=== PATIENT | male | born 1955 | race Caucasian/White ===

== ENCOUNTER 2017-12-01 06:54 | Emergency (ER) | payer BC ==
[~2017-12-01] VITALS: Ht 177.8 cm; Wt 181.8 kg
[2017-12-01 07:02] VITALS: BP 127/60; TEMP 98
[2017-12-01 08:28] LABS: BASO # 0.1 (0.0-0.2); BASO % 1.1 % (0.0-2.0); EOS # 0.5 (0.0-0.7); EOS % 6.8 % (0-4.0); GRAN # 3.8 (1.4-6.5); GRAN % 52.3 % (42.2-75.2); HEMOGLOBIN 11.8 g/dl (13.5-18.0); LYMPH # 1.7 (1.2-3.4); LYMPH % 23.5 % (20.0-51.0); MEAN CELL VOLUME 89 fl (80.0-100.0); MEAN CORPUSCULAR HEMOGLOBIN 29 pg (27.0-31.0); MEAN CORPUSCULAR HGB CONC 32 g/dl (33.0-37.0); MONO # 1.1 (0.1-0.6); MONO % 15.5 % (1.7-9.3); PLATELET COUNT 374 K/mm3 (130-400); RED BLOOD COUNT 4.13 M/mm3 (4.20-5.60); REDCELL DISTRIBUTION WIDTH-CV 15.9 % (11.5-14.5)
[2017-12-01 08:29] LABS: INR 1.2 (0.8-3.0); PROTHROMBIN TIME 13.5 SECONDS (9.7-12.8)
[2017-12-01 08:30] LABS: HEMATOCRIT 36.8 % (42.0-52.0)
[2017-12-01 08:32] LABS: PARTIAL THROMBOPLASTIN TIME 36.6 SECONDS (26.0-37.0)
[2017-12-01 08:37] LABS: ALANINE AMINOTRANSFERASE 31 U/L (21-72); ALBUMIN 3.6 gm/dL (3.5-5.0); ALKALINE PHOSPHATASE 70 U/L (50-136); ANION GAP 7 mmol/L (7-16); AST,SGOT 24 U/L (15-37); BILIRUBIN,TOTAL 0.4 mg/dL (0.0-1.0); BLOOD UREA NITROGEN 16 mg/dL (9-20); CALCIUM 8.8 mg/dL (8.4-10.2); CARBON DIOXIDE 29 mmol/L (22-30); CHLORIDE 100 mmol/L (98-107); CREATININE, serum 0.58 mg/dL (0.66-1.25); GLUCOSE 342 mg/dL (74-106); LIPASE 495 U/L (23-300); POTASSIUM 4.4 mmol/L (3.4-5.0); SODIUM 135 mmol/L (137-145); TOTAL PROTEIN 6.8 gm/dL (6.4-8.2)
[2017-12-01 08:40] LABS: ACETONE,SERUM NEGATIVE
[2017-12-01 08:51] LABS: TROPONIN-I < 0.012 ng/mL (0.000-0.034)
[2017-12-01 08:52] LABS: ARTERIAL BLD GAS O2 SATURATION 94.9 % (92-100); ARTERIAL BLD GAS TCO2 CT 24.8; ARTERIAL BLOOD GAS HCO3 23.8 meq/L (22-26); ARTERIAL BLOOD GAS PCO2 32.1 mmHg (35-45); ARTERIAL BLOOD GAS PO2 73.2 mmHg (80-100); ARTERIAL BLOOD GAS pH 7.49 (7.35-7.45)
[2017-12-01] MEDS ORDERED: PRILOSEC 20MG20 MG PO (10:02)
[2017-12-01] MEDS ORDERED: NORCO 325 MG-51 TAB PO (10:02)
[2017-12-01] MEDS ORDERED: LASIX 20MG TABL20 MG PO (10:03)
[2017-12-01] MEDS ORDERED: K-DUR 10 MEQ T10 MEQ PO (10:03)
[2017-12-01] MEDS ORDERED: ELIQUIS 5MG PO (10:04)
[2017-12-01] MEDS ORDERED: PRINIVIL10 MG PO (10:04)
[2017-12-01] MEDS ORDERED: GLUCOPHAGE500 MG/TAB PO (10:05)
[2017-12-01] MEDS ORDERED: PRAVACHOL80 MG PO (10:05)
[2017-12-01] MEDS ORDERED: CEPHALEXIN500 M1 PO (10:16)
[2017-12-01] MEDS ORDERED: DOXYCYCLINE 10100 MG PO (10:16)
[2017-12-01 10:39] VITALS: PULSE 88
== END 2017-12-01 10:40 | disposition home or self-care (01) ==
LOC: COL.ER 06:54
PROVIDERS: Emergency Medicine
DX: R60.0 Localized edema (principal); E11.65 Type 2 diabetes mellitus with hyperglycemia; L03.116 Cellulitis of left lower limb; L03.115 Cellulitis of right lower limb; Z90.49 Acquired absence of other specified parts of digestive tract; Z79.84 Long term (current) use of oral hypoglycemic drugs; Z79.01 Long term (current) use of anticoagulants
CPT/HCPCS: J1815; J1940